=== PATIENT | male | born 1950 | race Caucasian/White ===

== ENCOUNTER → 2016-11-14 | Outpatient (CLI) | payer OTHER, SELFPAY ==
[~2016-11-14] VITALS: Ht 182.9 cm; Wt 88.5 kg
[~2016-11-14] MED LIST: ASPIRIN325 PO; CALCIUM 500 +1 EAC5 PO; CELEBREX 200 M200 M1 PO; CENTRUM SILVER1 EAC4 PO; CHANTIX1 MG PO; CLONAZEPAM 0.50.5 M1 PO; CLONAZEPAM 1 MG1 M1 PO; FLOMAX0.4 MG PO; HYDROCHLOROTH12.5 MG PO; HYDROCODON-ACE1 EA14; MAGNESIUM OXID400 MG PO; MIRALAX255 GM PO; NASAL DECONGEST30 ML NS; NASAL SPRAY30 M3 NASAL; PERCOCET PO; PROPRANOLOL 1010 MG PO; SALINE NASAL SP30 ML NS; TRAZODONE HCL100 MG PO
--- NOTE | ~2016-11-14 | S ---
[facility] [place] [address] SURGICAL PATH RPT PROCEDURE Name: MANOJ URIOSTEGUI Room #: REG [facility] MPaulette.#: [id number] Admission: 11/14/16 Date of : 50 Discharge: Report #: [id number] Path Case #: [id number] PATHOLOGY REPORT COLLECTION DATE: 11/14/2016 RECEIVED DATE: 11/14/2016 SUBMITTING PHYS: Dr. Moy Paez OTHER PHYS: Dr. Tremaine Gold SPECIMEN(S) RECEIVED: A.Polyp at ascending colon B.Polyp at transverse colon C.Polyp at sigmoid colon D.Polyp at rectum * * * * * * * * * * * * FINAL DIAGNOSIS: A. "Polyp at ascending colon", biopsy: - Tubular adenoma; no high grade dysplasia. B. "Polyp at transverse colon", biopsy: - Tubular adenoma; no high grade dysplasia. C. "Polyp at sigmoid colon", biopsy: - Tubular adenoma; no high grade dysplasia. D. "Polyp at rectum", biopsy: - Hyperplastic polyp. (CLW; 11/16/16) PATHOLOGIST: Opal Hooker M.D. REPORT ELECTRONICALLY SIGNED BY: Opal Hooker M.D. DATE/TIME: 11/16/2016 21:52 * * * * * * * * * * * * GROSS PATHOLOGY: A. Received in formalin labeled "Manoj Uriostegui, polyp at ascending colon," are 3 segments of harrell soft tissue measuring 0.4 cm in aggregate dimensions and ranging from 0.1 to 0.2 cm in maximum dimension. The specimen is submitted entirely in cassette A1. B. Received in formalin labeled "Manoj Uriostegui, polyp at transverse colon," are 2 segments of harrell soft tissue measuring 0.5 cm in aggregate dimensions and ranging from 0.2 to 0.3 cm in maximum dimension. The specimen is submitted entirely in cassette B1. C. Received in formalin labeled "Manoj Uriostegui, polyp at sigmoid colon," are 3 segments of harrell soft tissue measuring 0.5 cm in aggregate dimensions and each measuring 0.2 cm. The specimen is submitted entirely in cassette C1. D. Received in formalin labeled "Manoj Uriostegui, polyp at rectum," [facility] [address] [place] [address] SURGICAL PATH RPT PROCEDURE Name: MANOJ URIOSTEGUI Room #: REG [facility].#: [id number] Admission: 11/14/16 Date of : 50 Discharge: Report #: [id number] Path Case #: [id number] are 2 segments of harrell soft tissue measuring 0.3 cm in aggregate dimensions and each measuring 0.2 cm. The specimen is submitted entirely in cassette D1. (SNA; 11/15/2016) CLINICAL HISTORY: Change in bowel INITIAL CPT CODE(S): A; 69443 B; 47135 C; 36194 D; 27210 Professional services performed by [facility] at [facility] [address] [place], [place] [address] Technical services performed by [facility] at [address] [place] [address], [address], [place] [address]. [facility] [address] [place] [address] PHONE: [phone] DIRECTOR: Wayne Gomez M.D. * * * END OF REPORT * * *
--- NOTE | ~2016-11-14 | P ---
[facility] [place] [address] PROCEDURE REPORT Name: MANOJ MORALES Room #: REG [facility].#: [id number] Admission: 11/14/16 Attend Phys: Moy Costa Discharge: Date of : 50 Report #: [id number] THIS REPORT FOR: //name// CC: Lan Gold DATE OF SERVICE: 11/14/2016 PROCEDURE PERFORMED: Colonoscopy with biopsies. HISTORY OF PRESENT ILLNESS: The patient is a 66-year-old male who is noted change in stools as well as constipation. He states his stools are thin and hard at times. He has been taking MiraLax once a day as well as Dulcolax, which has been somewhat helpful. He denies any blood in his stools. He does have a history of polyps, reportedly he had a colonoscopy 3 years ago. No family history of colon cancer. Denies any abdominal pain. PROCEDURE: The risks and benefits of the procedure were explained to the patient, those risks including, but not limited to bleeding, perforation, and the risk of sedation. He understood these risks and gave informed consent. Sedation was given using propofol per anesthesia. Next, a digital rectal exam was initially performed, which was normal. Next, using a standard Fujinon colonoscope, the scope was placed in the patient's anus and advanced under direct vision to the cecum. The overall prep was good. The cecum and ileocecal valve were normal in appearance. In the ascending colon, a 5-mm sessile polyp was noted and removed with cold forceps, otherwise normal. Transverse colon, 3-mm sessile polyp was noted and removed with cold forceps. Descending colon with a few diverticula, multiple large diverticula were noted throughout the sigmoid colon, no evidence of inflammation. There were 2 polyps in the sigmoid colon 3-4 mm, both were removed with cold forceps. In the rectum, a single 4-mm sessile polyp also noted and removed with cold forceps. On retroflexion, small nonbleeding internal hemorrhoids were noted. There were no abnormalities of the anal canal other than the internal hemorrhoids. No evidence of anal fissure or stricture. The scope was then withdrawn and the procedure terminated. The patient tolerated the procedure well. IMPRESSION: 1. Multiple small colonic polyps as described above. 2. Left-sided diverticulosis, extensive in the sigmoid colon, no evidence of inflammation. 3. Internal hemorrhoids. 4. Otherwise, normal colonoscopy. RECOMMENDATIONS: 1. Await biopsy results. [address] [address] PROCEDURE REPORT Name: MANOJ MORALES Room #: REG [facility] Steen#: [id number] Admission: 11/14/16 Attend Phys: Moy Costa Discharge: Date of : 50 Report #: [id number] 2. Repeat colonoscopy in 5 years. 3. Advise the patient to increase dose of MiraLax 2-3 capsules on a daily basis, if this is still not helpful from a constipation standpoint, then we would consider a trial of Linzess. Thank you for allowing me to participate in his care. <ELECTRONICALLY SIGNED> By: Moy Paez MD 11/16/1618 9 21 Moy Paez MD /nt
== END ==
LOC: GI 07:16
DX: D12.2 Benign neoplasm of ascending colon (principal); D12.3 Benign neoplasm of transverse colon; D12.5 Benign neoplasm of sigmoid colon; K62.1 Rectal polyp; K57.30 Diverticulosis of large intestine without perforation or abscess without bleeding; K64.8 Other hemorrhoids; I10 Essential (primary) hypertension; M19.90 Unspecified osteoarthritis, unspecified site; K21.9 Gastro-esophageal reflux disease without esophagitis; F32.9 Major depressive disorder, single episode, unspecified; F41.9 Anxiety disorder, unspecified; G47.33 Obstructive sleep apnea (adult) (pediatric); F17.210 Nicotine dependence, cigarettes, uncomplicated; Z86.010 Personal history of colon polyps; Z90.49 Acquired absence of other specified parts of digestive tract; Z98.890 Other specified postprocedural states
CPT/HCPCS: 62110; 62900

== ENCOUNTER 2019-01-05 13:43 | Emergency (ER) | payer OTHER, SELFPAY ==
[~2019-01-05] VITALS: Ht 180.3 cm; Wt 99.3 kg
[2019-01-05 14:20] VITALS: BP 120/83
[2019-01-06] MEDS ORDERED: AUGMENTIN 875-1 EACH PO (10:19)
[2019-01-06] MEDS ORDERED: NORCO 5-325 TA1 EAC1 PO (10:20)
== END 2019-01-05 14:16 | disposition home or self-care (01) ==
LOC: ER 13:43
DX: K64.4 Residual hemorrhoidal skin tags (principal); F17.210 Nicotine dependence, cigarettes, uncomplicated; F41.9 Anxiety disorder, unspecified; K58.9 Irritable bowel syndrome, unspecified; G47.30 Sleep apnea, unspecified; Z90.49 Acquired absence of other specified parts of digestive tract; Z96.642 Presence of left artificial hip joint

== ENCOUNTER 2019-01-05 16:28 | Observation (INO) | payer OTHER, SELFPAY ==
[~2019-01-05] VITALS: Ht 182.9 cm; Wt 99.8 kg
[2019-01-05 17:12] LABS: HEMATOCRIT 47.8 % (42.0-52.0); HEMOGLOBIN 16.2 gm/dL (14.0-18.0); MCV 94.2 fL (80.0-100.0); RBC 5.07 mil/uL (4.50-6.00); RDW 13.7 % (10.5-14.5); WBC 14.5 thou/uL (4.0-11.0)
[2019-01-05 17:19] LABS: CALCIUM 9.1 mg/dL (8.5-10.1); CREATININE 1.3 mg/dL (0.7-1.3)
[2019-01-05 17:24] LABS: ALBUMIN 3.6 g/dL (3.4-5.0); TOTAL BILIRUBIN 0.9 mg/dL (<0.1-1.0); TOTAL PROTEIN 7.9 g/dL (6.4-8.2)
[2019-01-05 17:46] VITALS: BP 119/86
--- NOTE | 2019-01-05 18:40 | NUR ---
PATIENT ARRIVED AT A DIRECT ADMIT FOR PERIRECTAL ABSCESS. A/OX4, PAIN MANAGED WITH MEDICATIONS, LUNGS CLEAR ON ROOM AIR. STEADY GAIT, NOT A FALL RISK AT THIS TIME. UP AB LIP FOR TOILETING. ABLE TO MAKE NEEDS KNOWN. ADMISSION ASSESMENT AND HISTORY COMPLETED. NPO FOR SURGERY TOMORROW [address] YOUNG.
[2019-01-05 20:58] VITALS: BP 122/80
[2019-01-06 03:44] VITALS: BP 124/68
[2019-01-06 07:08] VITALS: BP 123/70
--- NOTE | 2019-01-06 07:29 | NUR ---
PROGRESS PT A/O X 4 RATES PAIN TO NAHOMI AREA A 5 TO AN 8 TAKING FENTANYL WITH EFFECT HAD ONE DOES AND SLEPT MOST OF SHIFT, PHOTO OF ABSCESS WAS PLACED IN CHART NO DRAINAGE NOTED GIO. VSS IV ANTIBIOTICS ADMISITERED DIERCTED, TO HAVE I&D TODAY CONTINUE TO MONITOR.
[2019-01-06] MEDS ORDERED: AUGMENTIN 875-1 EACH PO (10:19)
[2019-01-06] MEDS ORDERED: NORCO 5-325 TA1 EAC1 PO (10:20)
[2019-01-06 10:58] VITALS: BP 123/70
--- NOTE | 2019-01-07 07:38 | EKG ---
[place] [address] [facility] [place] [address] ELECTROCARDIOGRAM REPORT Name: MANOJ MORALES Room #: 150-8 [facility]..#: [id number] ������������������ Admission: 01/05/19 ������������������ Attend Phys: Louis Gregorio MD Discharge: 01/06/19 ������������������ Date of : 50 Report #: [id number] ����������������������������������������������������������������� [id number] THIS REPORT FOR: //name// [facility] Test Date: 2019-01-05 Test Time: 17:19:06 Pat Name: MANOJ MORALES Department: Room: 150 Gender: M Apartment Community Manager: Yuriy ALEX : 1950 Requested By: Louis Gregorio Order Number: [id number] MD: Keith Mccarthy Measurements Intervals [place] Rate: 105 P: 59 SC: 139 QRS: 81 QRSD: 137 T: -30 QT: 372 QTc: 492 Interpretive Statements Sinus tachycardia Right bundle branch block Baseline wander in lead(s) V2 Compared to ECG 02/08/2016 08:37:19 Sinus tachycardia is now present Electronically Signed On 01-07-2019 7:38:10 CDT by Keith Mccarthy [email or web address] ��������������������������������������������� <ELECTRONICALLY SIGNED> ���������������������������������������� By: Keith Mccarthy MD, [facility] ��������������������������������������������� 01/07/19 0738 1719 18 Keith Mccarthy MD, [facility] /EPI
--- NOTE | 2019-02-05 17:33 | O ---
[facility] [place] [address] OPERATIVE REPORT Name: MANOJ MORALES Room #: 449-I [facility] Baldomero Steen#: [id number] Admission: 01/05/19 ������������������ Attend Phys: Louis Gregorio MD Discharge: 01/06/19 ������������������ Date of : 50 Report #: [id number] THIS REPORT FOR: //name// CC: Lan Gregorio PREOPERATIVE DIAGNOSIS: Perirectal abscess. 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 PROCEDURE PERFORMED: Incision and drainage of perirectal abscess with fistulotomy. ANESTHESIA: General in the lithotomy position. SURGEON: Louis Gregorio M.D. COMPLICATIONS: None. ESTIMATED BLOOD LOSS: 15 mL. DESCRIPTION OF PROCEDURE: With the patient under general anesthesia, the patient was straight catheterized first. He had difficulty urinating before the surgery. Straight catheterization was performed without difficulty. He had about 200 mL out. The perirectal area was then prepped and draped in the sterile fashion. With an anoscope placed, the patient does have some prominent hemorrhoid posteriorly. The abscess is posteriorly in the midline. There is some puffiness of the skin directly over that and it is kind of an oblong shape. I did feel a thickened area in the crypt in the dentate line. This was consistent with the infected crypt. I did try to probe it from above and the probe would not go in very easily. The abscess was then opened. Surprisingly, there was a large cavity under this. The cavity measured about 4 cm diameter. The cavity seemed to be extending to his right side, where there is some cellulitis present. The pus was under quite a bit of pressure even to escort it out. The cavity was opened up well. I then probed through the abscess. I then probed the tract and I was able to find the tract. This went in pretty easily. So, I do not think I created it. The skin and subcutaneous tissue were then incised over the fistula tract. Some of the thickened tissue along the fistula tract was trimmed off. Curette was then used to clean out the entire tract and the gland that was infected. Hemostasis was obtained with cautery. One inch iodoform gauze was then placed in the abscess cavity and 4 x 4 was placed over [address] [address] OPERATIVE REPORT Name: MANOJ MORALES Room #: 449-I [facility] Baldomero Steen#: [id number] Admission: 01/05/19 ������������������ Attend Phys: Louis Gregorio MD Discharge: 01/06/19 ������������������ Date of : 50 Report #: [id number] this area. Bandages applied. The patient was then taken to recovery room, having tolerated the procedure well. ��������������������������������������������� <ELECTRONICALLY SIGNED> ���������������������������������������� By: Louis Gregorio MD ��������������������������������������������� 02/05/19 1733 1142 1207 Louis Gregorio MD /nt
--- NOTE | 2019-02-05 17:34 | H ---
[facility] [place] [address] HISTORY AND PHYSICAL Name: MANOJ MORALES Room #: 449-I [facility] Baldomero Steen#: [id number] Admission: 01/05/19 ������������������ Attend Phys: Louis Gregorio MD Discharge: 01/06/19 ������������������ Date of : 50 Report #: [id number] THIS REPORT FOR: //name// CC: Lan Gregorio DATE OF SERVICE: 01/05/2019 ADMITTING AND PREOPERATIVE DIAGNOSIS: Perirectal abscess. HISTORY OF PRESENT ILLNESS: The patient is a 68-year-old who felt that he had hemorrhoid issue because of pain in the rectal area. This started on of last week. It is Saturday today. The patient says he has not eaten much ever since then. The patient has pain, swelling. Today, the swelling is less tense. He denies any bleeding. He has tried a couple of tubes of Preparation-H and also lidocaine. No prior issue with hemorrhoids. The patient did have fever, which was noted by his girlfriend, but they did not take any temperature. He did complain of chills. The patient denies any history of diabetes. The patient had such bad pain that he actually went to the Emergency Room at [facility] [place], but apparently he said nothing was done for him. He said they were not able to take care of it. The patient came to the office. When I examined him, I noticed that the patient had a posterior fluctuant area, which is consistent with a perirectal abscess. It is red and tender. There is redness that goes even along the subcutaneous tissue on the perianal skin. It is tender to palpation, consistent with a perirectal abscess. The patient was recommended to be admitted for pain control and starting antibiotics. He ate some toast earlier today and then he has had some water just about an hour and a half ago. I do not think it is necessary to proceed tonight with anesthetic. The patient is being scheduled for surgery. PAST MEDICAL HISTORY: He denies any heart problems, no diabetes, no lung problem, no kidney problems, no liver problems, no bleeding disorder, no history of blood clot. PAST SURGICAL HISTORY: He has had left hip surgery. He had an appendectomy, gallbladder surgery. ALLERGIES: He is not allergic to anything. REVIEW OF SYSTEMS: The patient says that he has history of irritable bowel, hypertension, diverticulosis, tremor. MEDICATIONS: The patient takes clonazepam for his tremors, bisoprolol/hydrochlorothiazide 5/6.[address] [address] HISTORY AND PHYSICAL Name: MANOJ MORALES Room #: 449-I [facility] Badlomero Steen#: [id number] Admission: 01/05/19 ������������������ Attend Phys: Louis Gregorio MD Discharge: 01/06/19 ������������������ Date of : 50 Report #: [id number] SOCIAL HISTORY: He is retired. He is a former smoker many years ago. The patient drinks very rarely. FAMILY HISTORY: No remarkable illnesses that runs in the family. REVIEW OF SYSTEMS: Unremarkable. PHYSICAL EXAMINATION: GENERAL: The patient is an elderly male in no acute distress. He does seem to be quite uncomfortable, however. He has a difficult time sitting down. He is alert and oriented. HEENT: Pupils react to light. Extraocular muscles are intact. Oropharynx is clear. NECK: Soft and supple, no masses, no JVD. LUNGS: Clear to auscultation. HEART: Regular rate and rhythm. No murmur or gallop. The patient is slightly tachycardic. ABDOMEN: Soft, nondistended, nontender. EXTREMITIES: No cyanosis, clubbing or edema. NEUROLOGIC: Motor function and sensory exam is normal. RECTAL: The patient does have a swollen, fluctuant abscess posteriorly. It is not tense. IMPRESSION AND PLAN: The patient with an obvious perirectal abscess posteriorly. He said it was not quite swollen today. He has not noticed any drainage. I think maybe he did drink some to make it less tight. The patient did eat today and I recommend that he come in hospital for antibiotic treatment and I am going to keep him n.p.o. for surgery in the morning. Pain medication is ordered to control his pain. Incision and drainage is recommended. Procedure discussed. The patient understands that he may have a fistula that we will look for and possibly may require fistulotomy. ��������������������������������������������� <ELECTRONICALLY SIGNED> ���������������������������������������� By: Louis Gregorio MD ��������������������������������������������� 02/05/19 1734 [id number] Louis Gregorio MD /nt
== END 2019-01-06 12:24 | disposition home or self-care (01) ==
LOC: 4W 16:28 → TBA 01-06 11:02 → 4W 01-06 11:03 → TBA 01-06 12:24 → 4W 01-06 12:24 → TBA 01-06 12:24
PROVIDERS: ADMIT Surgery
DX: K61.1 Rectal abscess (principal); I10 Essential (primary) hypertension; Z79.899 Other long term (current) drug therapy; Z87.891 Personal history of nicotine dependence
CPT/HCPCS: 10047; 50010; 50101; 50386; 62110; 62900; 70005